=== PATIENT | male | born 1990 | race African-American/Black ===

== ENCOUNTER 2017-06-24 15:00 | Inpatient (IN) | payer OTHER, MEDICARE ==
[~2017-06-24] VITALS: Ht 188 cm; Wt 81.6 kg
[~2017-06-24 15:00] MED LIST: A/B OTIC 54 MG/15 ML OTIC; RISPERDAL1 M1 PO
--- NOTE | 2017-06-24 15:51 | ED PSYCHIATRIC COMPLAINT ---
See Addendum History of Present Illness General Chief Complaint: Psychiatric Related Complaint Stated Complaint: NON COMPLIANT WITH PSY MEDS Source: patient, old records, peer Exam Limitations: clinical condition Vital Signs & Intake/Output Vital Signs & Intake/Output Vital Signs Date Time Temp Pulse Resp B/P B/P Pulse O2 O2 Flow FiO2 Mean Ox Delivery Rate 06/25 0617 97.0 66 18 128/70 100 Room Air 06/25 0445 98.2 75 16 136/71 100 Room Air 06/25 0238 60 16 100 Room Air 06/24 2331 98.1 77 16 121/73 98 Room Air 06/24 1631 Room Air 06/24 1524 97.8 74 18 140/67 99 Room Air ED Intake and Output 06/25 0000 06/24 1200 Intake Total Output Total Balance Patient 180 lb Weight Reconcile Medications Antipyrine/Benzocaine (A/B Otic 54 MG/Ml-14 MG/Ml 15 Ml) 15 ML FELIX 4 GTT OTIC TID CERUMEN IMPACTION Risperidone (Risperdal) 1 MG TABLET 1 TAB PO QPM scizoeffective Triage Note: PT BIBA ON PEER FOR AGGRESSIVE BEHAVIORS AND NON COM WITH MEDS. PT FAMILY CALLED AND STATED HE NEEDED TO BE EVAL.. POLICE ARRIVED AND PT WAS NOT MAKING SOUND STATEMENTS. Triage Nurses Notes Reviewed? yes Onset: Abrupt Duration: day(s): (2-3) Timing: single episode today Severity: moderate, severe Associated Symptoms: anxiety, impaired concentration HPI: 26-year-old male past medical history of schizophrenia presents for evaluation on a police paper. Patient's family had called the police stating that patient needed to the hospital in the psych evaluation. Patient has not been taking his medications for 2 or 3 days. He supposed be taking Depakote and risperidone. He states that he has been hearing voices. He denies feeling suicidal ideation but does report depression and anxiety. History is limited because patient is currently psychotic. He denies any drug or alcohol use. No chest pain or any other associated symptoms. (Kamari Wu) Allergies Coded Allergies: No Known Allergies (06/24/17) (Charo XAVIER,Gerard) Past History Medical History Any Pertinent Medical History? see below for history Psychiatric: bipolar disease, psychosis, schizophrenia Surgical History Surgical History: N Psychosocial History Who do you live with Patient/Self What is your primary language Burmese Family History Hx Contributory? No (Kamari Wu) Review of Systems Review of Systems Constitutional: Reports: no symptoms. EENTM: Reports: no symptoms. Respiratory: Reports: no symptoms. Cardiovascular: Reports: no symptoms. GI: Reports: no symptoms. Genitourinary: Reports: no symptoms. Musculoskeletal: Reports: no symptoms. Skin: Reports: no symptoms. Neurological/Psychological: Reports: see HPI, anxiety, emotional problems, other (psychotic ). Hematologic/Endocrine: Reports: no symptoms. Immunologic/Allergic: Reports: no symptoms. All Other Systems: Reviewed and Negative (Kamari Wu) Physical Exam Physical Exam General Appearance: well developed/nourished, no apparent distress, alert, awake Head: atraumatic, normal appearance Eyes: Bilateral: normal appearance, PERRL, EOMI. Ears, Nose, Throat: normal pharynx, normal ENT inspection, hearing grossly normal Neck: normal inspection, supple, full range of motion Respiratory: normal breath sounds, chest non-tender, no respiratory distress, lungs clear Cardiovascular: regular rate/rhythm, normal peripheral pulses Gastrointestinal: soft, non-tender Extremities: normal range of motion Neurological/Psychiatric: no motor/sensory deficits, awake, agitated, alert, anxious Appearance/Memory/Insight: disheveled, impaired insight Behavoir/Eye Contact/Speech: avoids eye contact, uncooperative, increased rate of speech, refused to answer Thoughts/Hallucinations: delusions, flight of ideas, grandiose, incoherent Skin: intact, normal color SAD PERSONS Done? patient not suicidal (Kamari Wu) Progress Differential Diagnosis: dementia, drug intoxication, drug overdose, drug withdrawal, electrolyte abnormality, medication noncompliance Plan of Care: Orders Procedure Date/time Status Regular Diet 06/25 B Active Continuous Observation Monitor 06/25 0700 Active Continuous Observation Monitor 06/25 0300 Active Regular Diet 06/24 D Complete Continuous Observation Monitor 06/24 2300 Active Continuous Observation Monitor 06/24 1900 Active Add-on Test (ER Only) 06/24 1806 Active DEPAKOTE LEVEL 06/24 1700 Complete Continuous Observation Monitor 06/24 1507 Active URINE DRUG SCREEN FOR ER ONLY 06/24 1507 Complete URINALYSIS 06/24 1507 Complete ETHANOL 06/24 1507 Complete COMPREHENSIVE METABOLIC PANEL 06/24 1507 Complete CBC WITHOUT DIFFERENTIAL 06/24 1507 Complete ED CRISIS PSYCH CONSULT 06/24 1507 Active Current Medications Sig/Rose Start time Last Medication Dose Stop Time Status Admin Divalproex Sodium 500 MG BID 06/25 1030 UNVr 06/25 (Depakote) 1045 Risperidone 2 MG BID 06/25 1030 UNVr 06/25 (Risperidone) 1045 Laboratory Tests 06/24/17 1700: Anion Gap 13, Estimated GFR > 60, BUN/Creatinine Ratio 14.0, Glucose 95, Calcium 9.8, Total Bilirubin 0.6, AST 26, ALT 27, Alkaline Phosphatase 66, Total Protein 7.5, Albumin 4.3, Globulin 3.2, Albumin/Globulin Ratio 1.3, CBC w Diff NO MAN DIFF REQ, RBC 4.74, MCV 94.9 H, MCH 30.3, MCHC 32.0 L, RDW 15.0 H, MPV 9.8, Gran % 46.8, Lymphocytes % 38.3, Monocytes % 11.2 H, Eosinophils % 2.9, Basophils % 0.8, Absolute Granulocytes 1.8, Absolute Lymphocytes 1.5, Absolute Monocytes 0.4, Absolute Eosinophils 0.1, Absolute Basophils 0, Valproic Acid < 10.0 L, Serum Alcohol < 10.0 06/24/17 1537: Urine Opiates Screen < 100, Methadone Screen < 40, Barbiturate Screen < 60, Ur Phencyclidine Scrn < 6.00, Amphetamines Screen < 100, U Benzodiazepines Scrn < 85, Urine Cocaine Screen < 50, Urine Cannabis Screen < 5.00, Urine Color YEL, Urine Clarity CLEAR, Urine pH 6.5, Ur Specific [place] 1.015, Urine Protein NEG, Urine Ketones NEG, Urine Nitrite NEG, Urine Bilirubin NEG, Urine Urobilinogen 0.2, Ur Leukocyte Esterase NEG, Ur Microscopic EXAM NOT REQUIRED, Urine Hemoglobin NEG, Urine Glucose NEG History is limited as patient is currently very psychotic. He is not answering most questions. He denies being suicidal or homicidal. He is not taking his medications. Spoke with crisis they recommend risperidone and Depakote these were ordered. Basic labs ordered and are within normal limits. Patient be kept in the ER for crisis eval. He is on a police paper. Patient sent to Dr. Mancilla pending crisis. Hand-Off Endorsed To: Gerard Mancilla MD Endorsed Time: 2137 Pending: consult (crisis) (Kamari Wu) Hand-Off Endorsed To: Chuck Mohamud DO Endorsed Time: 0700 Pending: other (Re-eval) (Gerard Mancilla MD) Departure Departure Disposition: STILL A PATIENT Condition: Stable Clinical Impression Primary Impression: Schizophrenia Qualifiers: Schizophrenia type: unspecified Qualified Code: F20.9 - Schizophrenia, unspecified Referrals: Suellen Nur (PCP/Family) Departure Forms: Customer Survey General Discharge Information (Kamari Wu) PA/MOLD INSPECTOR Co-Sign Statement Statement: ED Attending supervision documentation- x I saw and evaluated the patient. I have also reviewed all the pertinent lab results and diagnostic results. I agree with the findings and the plan of care as documented in the PA's/MOLD INSPECTOR's documentation. [] I have reviewed the ED Record and agree with the PA's/MOLD INSPECTOR's documentation. [] Additions or exceptions (if any) to the PAs/MOLD INSPECTOR's note and plan are summarized below: [] (Gerard Mancilla MD) Departure Comments 06/25/17 The patient was signed out to me by Dr. Mancilla at 7 AM. He is pending disposition by Crisis. (Chuck Mohamud DO) ED Attending Observation Initial Observation Note: I have seen and personally examined MALGORZATA BYERS on 06/24/17 at 8. I agree with the current emergency department documentation. The disposition (admission or discharge) is uncertain at this time, he needs a period of observation for the following reason(s): The ED Nurse caring for this patient has been personally informed as to what the patient is being observed for. (Kamari Wu)
[2017-06-24 17:42] LABS: ABSOLUTE BASOPHIL COUNT 0 /CUMM (0.0-0.2); ABSOLUTE EOSINOPHIL COUNT 0.1 /CUMM (0.0-0.7); EOSINOPHIL % 2.9 % (0-5)
[2017-06-24 17:43] LABS: ABSOLUTE GRANULOCYTE CT 1.8 /CUMM (1.4-6.5); ABSOLUTE LYMPH COUNT 1.5 /CUMM (1.2-3.4); ABSOLUTE MONOCYTE COUNT 0.4 /CUMM (0.10-0.60); BASOPHIL % 0.8 % (0.0-2.0); GRANULOCYTE % 46.8 % (42.2-75.2); MEAN CORPUSCULAR HGB 30.3 PG (27.0-31.0); MEAN CORPUSCULAR VOLUME 94.9 FL (80.0-94.0); MEAN PLATELET VOLUME 9.8 FL (7.4-10.4); PLATELET COUNT 257 /CUMM (130-400); RED BLOOD CELL CT 4.74 /CUMM (4.70-6.10); WHITE BLOOD CELL COUNT 3.8 /CUMM (4.8-10.8)
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
[2017-06-27 12:10] VITALS: BP 148/65
--- NOTE | 2017-06-27 14:12 | CPS PROVIDER INIT ASMT PSYCH ---
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 The day prior to admission he presented at his brother's house in a state of agitation and floridly psychotic Circumstances Leading to Admission: psychotic, non compliant with treatment, using drugs and alcohol, being belligerent and gravely disabled Problem(s) Justifying Need for Admission: -acute psychosis -history of suicidal ideation-currently pssivley suicidal(no plan/intent) Past Psychiatric History Past Diagnosis(es)- if any: Schizophrenia, bipolar disorder,personality disorder Past Precipitating Factors- if any: -noncomliant with medication - Include inpatient and outpatient treatment Treatment History: -multiple inpatient treatments -multiple oupatien treatments -noncompliance with after care History of Suicide Attempts or Gestures denies Substance Abuse History: cannabis Allergies: Coded Allergies: No Known Allergies (06/24/17) Home Med List: none - Include any medical condition(s) that may - impact the patient's recovery/remission Past Medical History: non contributory Past History Medical History Blood Transfusion Hx: No Neurological: NONE EENT: NONE Cardiovascular: NONE Respiratory: NONE Gastrointestinal: NONE Hepatic: NONE Renal: NONE Musculoskeletal: NONE Psychiatric: bipolar disease, psychosis, schizophrenia Endocrine: NONE Blood Disorders: NONE Cancer(s): NONE 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: 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 History of MRSA: No History of VRE: No History of CDIFF: No Isolation History: Standard Surgical History Surgical History: PT HAS MULTIPLE SX R/T KEEN A CHILD Psychiatric Family/Social Hx Family History Psychiatric Illness: unknown Substance Use: cannabis Suicides: unknown Other Family History: non contributory Social History Living Situation: lives alone in apprtment in [place], [place] Significant Relationships (family/friends): -good relationship with family, does not have friends Education: HS graduate Vocation/Occupation: disabled Legal: denies Other Social History: non contributory Healthly Behaviors Screening Tobacco Screening Tobacco Use from ED Docu: Refused to answer - If tobacco counseling indicated - the following topics are required. - #1 Recognizing dangerous situations. - #2 Coping Skills. - #3 Basic information about quitting. Status of Tobacco Cessation Counseling: Not Applicable Cessation Med Status Not Applicable Alcohol Screening - ETOH screen POS if BAL >=80 or Audit-C>= M4/F3 Audit-C Score from Diag Assess: 0 Alcohol Use Screening Results: Neg per Audit C &/or BAL - If ETOH counseling indicated - the following topics are required. - #1 Express concern about the patient's - drinking at unhealthy levels, include informing - of national norms for moderate drinking: - men <= 14 drinks/week, max 4 drinks/occasion - women <= 7 drinks/week, max 3 drinks/occasion - #2 Providing feedback, including linking alcohol to - negative physical effects (liver injury, hypertension) - negative emotional effects (relationship problems and - depression) - negative occupational consequences (reduced work - performance) - #3 Advising the patient to abstain from alcohol or - to drink below national norms for moderate drinking - (as listed above). Status of ETOH Use Counseling: N/A B/C NO ETOH Use Metabolic Screening - Screen if on a Neuroleptic Medication - Metabolic screening should include: - Blood Pressure, BMI, Glucose or Hgb A1c, & a - Lipid profile from within the past 365 days. Metabolic Screening () Not Applicable, patient not on a neuroleptic. OR () Patient on a neuroleptic(s) . Enter below results for Hemoglobin A1C, and lipid panel if obtained during the last 365 days. BMI: 23.100 Blood Pressure: 146/78 Laboratory Results From [facility] (If applicable): Exam and Plan Mental Status Examination Ambulation Status: AD Appearance: dishevelled Attitude towards examiner: cooperative Psychomotor activity: agitated Behavior: erratic Quality of speech: poverty of speech and thought Affect: blunted, constricted, frustrated Mood: irritable Suicidal Ideation: denies Homicidal Ideation: denies Hallucinations: denies but seems to respod to internal stimuli Paranoid/Delusional Material: present-people are talking about him, conspiring to get him in trouble Difficulties with thought organization: poverty of thought. thought blocking Insight: poor insight Judgment: poor judgement Orientation: x3 Cognition: intact Memory Function: intact Estimate of intellectual functioning: average Assets/Strengths Patient Identified Assets/Strengths: -smart, compassionate Impression/Plan Impression and Plan: 26 yo with shizoaffective disorder and exacerbation of symptoms in the context of medication non-compliance Inpatient stabilization - Include all active medical diagnosis that require tx DSM 5 Diagnosis(es): schizoaffective disorder, bipolar type, acute exacerbation - Initial Tx Plan for Active Psych & Medical Conditions Treatment Plan: -resume medication -resume depo-medication -participation in therapeutic milieu -appropriate aftercare - Factors that would help patient function - in a less restrictive setting. Factors: -absence of psychosis -medication compliance -appropriate aftercare
--- NOTE | 2017-06-27 17:21 | History & Physical ---
General Information and HPI MD Statement: I have seen and personally examined MALGORZATA BYERS and documented this H&P. The patient is a 26 year old M who presented with a patient stated chief complaint of disorganized behavior and agitation. Source of Information: patient Exam Limitations: no limitations History of Present Illness: 26-year-old male with past psychiatric history significant for schizophrenia and screws affective disorder who is admitted to Inpatient Psychiatry with disorganized behavior and agitation. Apparently patient was not taking his medications. He went to his brother's house who called 911. Patient was recently admitted which were hospital also. He has not been compliant with his medications and he does not follow with outpatient appointments. Patient denies any medical issues, he denies any aches or pains, no chest pain, no shortness of breath, no nausea vomiting or diarrhea. Denies any urinary complaints. 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 Psychosocial History Where do you live? Home ETOH Use: 6 Illicit Drug Use: UTD Review of Systems Review of Systems Constitutional: Reports: see HPI. EENTM: Reports: see HPI. Cardiovascular: Reports: see HPI. Respiratory: Reports: see HPI. GI: Reports: see HPI. Musculoskeletal: Reports: see HPI. Neurological/Psychological: Reports: see HPI. Exam & Diagnostic Data Last 24 Hrs of Vital Signs/I&O Vital Signs Date Time Temp Pulse Resp B/P B/P Pulse O2 O2 Flow FiO2 Mean Ox Delivery Rate 06/27 1210 97.0 83 148/65 06/27 1141 92 15 145/88 100 Room Air Room Air 06/27 0834 97.5 84 20 131/71 99 Room Air 06/27 0622 98.2 65 16 125/56 99 Room Air 06/27 0420 97.7 72 20 128/60 97 Room Air 06/27 0018 97.5 66 16 148/69 100 Room Air 06/26 1910 98.1 92 18 136/63 99 Room Air Intake & Output 06/27 1600 06/27 0800 06/27 0000 Intake Total Output Total Balance Patient 180 lb Weight Physical Exam General Appearance Alert, Oriented X3, Cooperative, No Acute Distress Skin scar vinay on the face and neck HEENT PERRLA Neck Supple Cardiovascular Regular Rate, Normal S1, Normal S2, No Murmurs Lungs Clear to Auscultation Abdomen Normal Bowel Sounds, Soft, No Tenderness Neurological Cranial Nerves II through XII: intact Extremities No Edema Last 24 Hrs of Labs/Polo: Labs from 06/24 reviewed. Assessment/Plan Assessment: 26-year-old male with past history significant for schizophrenia and schizoaffective disorder who was admitted to Inpatient Psychiatry with disorganized behavior and agitation. I have reviewed patient's blood work from 06/24/2017. He does have slight leukopenia. His BEP is normal. He does have low valproic acid level likely secondary to medication noncompliance. I will defer his psych management up to psychiatrist. As Ranked By This Provider Problem List: 1. Schizophrenia Qualifiers Schizophrenia type: unspecified Qualified Code: F20.9 - Schizophrenia, unspecified 2. Schizoaffective disorder Miscellaneous Miscellaneous Documentation Attending Case Discussed With: Madeleine Chatman M.D. Primary Care Physician: Suellen Nur Patient sees these Specialists psychiatrist Level of Patient Care: Isael
[2017-06-27 19:45] VITALS: BP 148/79
[2017-06-28 08:19] VITALS: BP 132/57
[2017-06-28 12:12] VITALS: BP 148/86
--- NOTE | 2017-06-28 15:36 | SOCIAL WORKER PROG NOTE PSYCH ---
Social Work Progress Note Progress Note Attempted to meet with pt to complete his psychosocial history, but he was sedated due to agitation.
[2017-06-28 15:38] VITALS: BP 115/71
[2017-06-28 19:53] VITALS: BP 146/78
--- NOTE | 2017-06-28 20:38 | CP SOUTH PROGRESS NOTE PSYCH ---
Psych (Inpt) Progress Note Progress Note The patient was discussed with the unit staff. We reviewed the inpatient and crisis medical records. We interviewed the patient 1:1 He has been calmer, cooperative with the interview, still inappropriate, unable to respect boundaries, needed to be redirected multiple times by staff members when he was bothering other patients. Being intrusive. He is noticed to talk to himself and laughing inappropriately at times. He is also making inappropriate comments relative to her peers and staff members. He is cooperative with taking medications and seems to be tolerating it well. The patient denies suicidal/homicidal ideation, auditory/visual hallucinations or side effects from medication. He received an injection of Risperdal Consta 25 mg to be repeated every 2 weeks. We will continue the oral risperidone at this time. A/P Schizophrenia-started to respond to medication intervention. We will continue present medication regimen, observation, symptom monitoring. The patient will be followed up daily by the unit psychiatrist.
--- NOTE | 2017-06-29 11:02 | CP SOUTH PROGRESS NOTE PSYCH ---
Psych (Inpt) Progress Note Progress Note Vital Signs Date Time Temp Pulse Resp B/P B/P Pulse O2 O2 Flow FiO2 Mean Ox Delivery Rate 06/28 1952 97.4 72 146/78 06/28 1538 86 115/71 06/28 1212 94 148/86 slightly irritable, marginally cooperative with the interview Dr. Waldrop's notes for the weekend indicated the following: "still inappropriate, unable to respect boundaries, needed to be redirected multiple times by staff members when he was bothering other patients., intrusive." Today, he seemed witjhdrawn/disinterested he was not talking to himself or laughing inappropriately during interview. He is cooperative with taking medications and seems to be tolerating it well. The patient denies suicidal/homicidal ideation, denied auditory/visual hallucinations or side effects from medication. A/P Schizophrenia-started to respond to medication intervention. We will continue present medication regimen, observation, symptom monitoring. The patient will be followed up daily by psychiatrist.
[2017-06-29 12:05] VITALS: BP 143/76
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
--- NOTE | 2017-06-29 16:13 | SOCIAL WORKER PROG NOTE PSYCH ---
Social Work Progress Note Progress Note Introduced myself to James and attempted to complete his social hx. He was cooperative initially, but wasn't really able to give alot of detailed information. He asked me several times why this information was being taken as no one has done it before. I explained the purpose several times. He seemed to be struggling with answers and appeared guarded. He then stated that he wasn't able to do this today. I told him that was ok and we will try again tomorrow. He then left the office.
[2017-06-29 16:20] VITALS: BP 149/78
[2017-06-29 19:38] VITALS: BP 149/78
[2017-06-30 08:45] VITALS: BP 163/76
--- NOTE | 2017-06-30 08:50 | CP SOUTH PROGRESS NOTE PSYCH ---
Psych (Inpt) Progress Note Progress Note The patient's progress and treatment plan were reviewed and the treatment team meeting this morning. The team included: Nursing staff, social work staff, group therapy, activity therapy/milieu therapy staff, and psychiatrist. Vital signs: Blood pressure was 145/78 mmHg, pulse was 83 bpm, and temperature was 97.3F Mental status examination: The patient spent most of the morning in his room. He finally got up around 12: 30 or 13:00 James was less irritable today, he was marginally cooperative with the interview, remains withdrawn/disinterested He denies hallucinations and did not seem to be responding to internal stimuli. The interview was not long as he was very disinterested and therefore I could not tell how thought disordered he was. He is cooperative with taking medications and seems to be tolerating it well. The patient denies suicidal/homicidal ideation, Denied side effects from medication. Assessment: James is a 26-year-old single black male who was admitted to the inpatient psychiatric unit at [facility] on 06/27/2017 on a physician emergency certificate Schizophrenia-started to respond to medication intervention. We will continue present medication regimen, observation, symptom monitoring. The patient will be followed up daily by psychiatrist. Current Medications Divalproex Sodium 500 MG BID 06/25 1030 AC 06/30 Haloperidol 5 MG Q2 HRS NEEDED PRN 06/27 1400 AC 06/29 Lorazepam 2 MG AT BEDTIME NEED.. 06/29 1200 AC Lorazepam 1 MG Q4 HRS NEEDED PRN 06/29 1200 AC 06/29 Lorazepam 2 MG Q2 HRS NEEDED PRN 06/29 1200 AC Risperidone 25 MG Q 2 WEEKS 06/27 1415 AC 06/27 Risperidone 2 MG BID 06/25 1030 AC 06/30
[2017-06-30 12:02] VITALS: BP 145/78
--- NOTE | 2017-06-30 15:41 | SOCIAL WORKER PROG NOTE PSYCH ---
Social Work Progress Note Progress Note Met with James to discuss issues related to his eviction. James couldn't tell me much other than he thought he was supposed to be in court yesterday or today. I ended calling [address] with him to see what was going on ). I was informed that a court hearing hadn't been scheduled and he has to file paperwork for an appearance. They gave me the rosita number ( [id number]). James seems very disorganized and confused about what his is supposed to be doing. He doesn't think he has any paperwork at home and said someone stole his eviction notice. I asked if he had anyone to help him with any of this? He said no. I asked if his Brother Patrick was a support to him? He said no and that he tries to just stay away from him and not speak with him. I asked if he had received services at [facility]? He said he has for short periods of time. I asked if he would like to be re-referred? He said ok. He signed a release. He mentioned that he goes to school and wants someone to take hikes with. I asked what he would like to go to school for? He laughed and didn't know what I meant. Seems to continue to be disorganized and tangential. Got guarded when I asked if he was feeling isolated and lonely? He said he doesn't like to answer those kind of questions and didn't want to talk anymore.
[2017-06-30 16:02] VITALS: BP 143/71
[2017-06-30 20:03] VITALS: BP 125/67
--- NOTE | 2017-07-01 07:57 | CP SOUTH PROGRESS NOTE PSYCH ---
Psych (Inpt) Progress Note Progress Note The patient's progress and treatment plan were reviewed in the treatment team meeting this morning. The team included: RN, social work staff, group therapy, activity therapy/milieu therapy staff, and psychiatrist. Vital signs: Blood pressure was 115/80 mmHg, pulse was 83 bpm, and temperature was 97.4 F Mental Status Examination: The patient was awake but sleepy/tired. He was pleasant. He cooperative with the interview althought he remains somewhat disinterested. He denied hallucinations and did not seem to be responding to internal stimuli. The patient seemed to have difficulties with attention, concentration, information processing and organization of thoughts. the patient denies suicidal/homicidal ideation, taking medications and seems to be tolerating them well/denied side effects from medication. Assessment: James is a 26-year-old single black male who was admitted to the inpatient psychiatric unit at [facility] on 06/27/2017 on a physician emergency certificate, Schizophrenia-started to respond to medication intervention. Treatment Plan Update: We will continue Risperidone 25 MG IM Q 2 WEEKS Risperidone 2 MG BID Divalproex Sodium 500 MG BID Lorazepam 2 MG AT BEDTIME NEED.. Lorazepam 1 MG Q4 HRS NEEDED PRN Lorazepam 2 MG Q2 HRS NEEDED PRN Lorazepam 1 MG Q4 HRS NEEDED PRN 06/29 1200 AC 06/29 Lorazepam 2 MG Q2 HRS NEEDED PRN 06/29 1200 AC Risperidone 25 MG Q 2 WEEKS 06/27 1415 AC 06/27 Risperidone 2 MG BID 06/25 1030 AC 06/30 DICTATED BY: Td Doherty MD DATE/TIME DICTATED:06/30/1749
[2017-07-01 08:41] VITALS: BP 146/84
--- NOTE | 2017-07-01 11:17 | SOCIAL WORKER PROG NOTE PSYCH ---
Social Work Progress Note Progress Note TC - [facility] - Spoke Rajani in Admissions - she suggested leaving a VM with [facility] Outpatient . Left a voicemail regarding process to connect a [place] patient currently inpatient at to [facility]. Spoke with Rajani/Admissions [facility] again stated no name or contact on VM. She did state at [facility] there is a Walk-in at [facility] - triage for services. She suggested I call [facility] - , for more information. Left a voicemail for Feilcia/ACT Team [facility] - asked her to call Danelle Dickey LCSW back [facility] regarding patient and most expedited way to connect him to [facility] outpatient - prescriber and therapy.
[2017-07-01 12:05] VITALS: BP 115/80
--- NOTE | 2017-07-01 15:37 | SOCIAL WORKER PROG NOTE PSYCH ---
See Addendum Social Work Progress Note Progress Note James was looking to speak with me. He has a small piece of paper in his had that said "need to speak about medical marijuana." He asked about how to get on medical marijuana. I told him that was not something we do here at the hospital and he would need to speak to someone in the community about that. I asked if he was using marijuana regularly? I believe tox screen was negtive. He said "no I don't need it." The more questions I ask the more agitated/ frustrated he gets and stated to me "you can't ask so many questions like that to an angry person." I had been trying to ask more questions about his current eviction. He reports paying his rent. I asked if had been disturbing the peace or anything like that? He wouldn't answer personal questions. He stated he would rather just leave the apartment he has been in and find a new place. He was guarded about answering what his income is. Asked how his day was going? He stated it was better than yesterday. Reported sleeping okay. Reports no other symptoms at this time. Was focused on the smoking cessation group info posted on the wall. He asked about it. I shared what the purpose of it was. He talked about wanting to stop smoking, but then seemed disorganized in his thinking as it sounded like he still wanted to smoke. Remains guarded and disorganized.
[2017-07-01 16:00] VITALS: BP 136/64
[2017-07-01 19:43] VITALS: BP 116/77
[2017-07-02 07:54] VITALS: BP 151/67
[2017-07-02 12:10] VITALS: BP 141/76
--- NOTE | 2017-07-02 13:05 | CP SOUTH PROGRESS NOTE PSYCH ---
Psych (Inpt) Progress Note Progress Note The patient's progress and treatment plan were reviewed in the treatment team meeting this morning. The team included: RN, PRINCIPAL ANDROID DEVELOPER, group therapy, activity therapy/milieu therapy and art therpay staff, and psychiatrist. Vital signs: BP: 141/76 mmHg, pulse was 91 bpm, and temperature was 97.9 F Mental Status Examination: The patient was alert and oriented to time, place, and person. He was pleasant and cooperative--up to a point. At one point became paranoid and asked why I was asking about his housing options/eviction notice, etc. He denied hallucinations and did not seem to be responding to internal stimuli except on one short occasion. James has difficulties with attention, concentration, and information processing. This seems to be a combination of executive defiicts as well as a thought process disruption. James denied suicidal/homicidal ideation, tolerating them well/denied side effects from medication. He denied that he was on injectable Risperidone, he said he was taking pills, he said he does not plan to take any more injections Assessment: James is a 26-year-old single Black male who was admitted to the inpatient psychiatric unit at [facility] on 06/27/2017 on a PEC due to what seemes an acute exacerbation of schizophrenia. He is showing improvement, slow but consistent. Treatment Plan Update: D/C Risperdal Consta (he insisted he was not on Consta and does not plan to continue on Consta) Continue Risperidone 2 MG BID Continue Divalproex Sodium 500 MG BID Lorazepam 2 MG AT BEDTIME NEEDed for insonia.
--- NOTE | 2017-07-02 14:27 | SOCIAL WORKER PROG NOTE PSYCH ---
Social Work Progress Note Progress Note Called the [facility] Diagnostic and evaluation unit about his referral. I was told that Dr. Manzo reviews all of the referrals and she is out until Thursday. She said to send a clinical packet to . I told them this is a patient that had been seen by them and is looking to renew services again. The staff member stated he was a client there from 2013-Apr 2016. Faxed clinical. Let James know I was working on his referral. He met with Lexis (PLUMBING AND HEATING CONTRACTOR student) to finish his psychosocial today. Seems a bit brighter.
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
[2017-07-02 16:08] VITALS: BP 142/73
[2017-07-02 19:41] VITALS: BP 146/75
--- NOTE | 2017-07-03 10:42 | SOCIAL WORKER PROG NOTE PSYCH ---
Social Work Progress Note Progress Note James was in bed sleeping this morning. Wasn't at group. Encouraged him to get up and go to group. Was in bed again later in the afternoon. Offers no issues, other than wondering when he is going home. I told him sometime next week hopefully. Wished him Happy Easter. He wished me the same.
[2017-07-03 12:10] VITALS: BP 99/45
--- NOTE | 2017-07-03 13:38 | CP SOUTH PROGRESS NOTE PSYCH ---
Psych (Inpt) Progress Note Progress Note The patient's progress and treatment plan were reviewed in the treatment team meeting this morning. The team included: RN, BACKREST ASSEMBLER, group therapy, activity therapy/milieu therapy, and psychiatrist. Mental Status Examination: The patient was alert and oriented to time, place, and person. He was pleasant and cooperative (up to a point). He denied hallucinations and did not seem to be responding to internal stimuli except on one short occasion. James has difficulties with attention, concentration, and information processing. This seems to be a combination of executive dysfunction as well as a thought process disruption. James denied wishing and denied suicidal/homicidal ideation, denied side effects from medication. He denied that he was on injectable Risperidone, he said he was taking pills, he said he does not plan to take any more injections Assessment: James is a 26-year-old single Black male who was admitted to the inpatient psychiatric unit at [facility] on 06/27/2017 on a PEC due to what seemes an acute exacerbation of schizophrenia. He is showing slow but consistent improvement. Treatment Plan Update: Increase risperidone to 2 MG every morning and 3 mg at bedtime Continue Divalproex Sodium 500 MG BID Lorazepam 2 MG AT BEDTIME NEEDed for insonia.
[2017-07-03 16:15] VITALS: BP 145/74
[2017-07-03 19:49] VITALS: BP 140/72
--- NOTE | 2017-07-04 10:53 | CP SOUTH PROGRESS NOTE PSYCH ---
Psych (Inpt) Progress Note Progress Note Include the following elements, when applicable: Involvement in the active treatment of the patient with behavioral observations of the patient and the patient's response to the treatment. Review of the ongoing treatment process in the context of the treatment plan. Indication of how multi-disciplinary staff members are carrying out the treatment plan. Plans for future interventions and recommendations for revision of the treatment plan. Liaison with other physicians/providers. Progress Note: At first pt did not want to come out from underneath covers but did respond to questions. Eventually, he poked the top of this head out and made limited eye contact. Pt notes that he is "fine." Was not interested in groups today "I went yesterday." He notes that he is tired and wanted to go back to sleep though pt was not sleeping before. Pt notes no social supports. Very long pause when asked about psychotic sx but never actually answered. Denies SI or HI. Current Medications Sig/Rose Start time Last Medication Dose Route Stop Time Status Admin Diphenhydramine HCl 25 MG Q2 HRS NEEDED PRN 06/27 1400 DC 07/02 PO 2153 Divalproex Sodium 500 MG BID 06/25 1030 AC 07/04 PO 1019 Haloperidol 5 MG Q2 HRS NEEDED PRN 06/27 1400 AC 07/03 PO 2108 Lorazepam 1 MG Q6P PRN 07/03 1345 AC PO Lorazepam 2 MG AT BEDTIME NEED.. 06/29 1200 AC 07/03 PO 2108 Lorazepam 1 MG Q4 HRS NEEDED PRN 06/29 1200 DC 06/30 PO 2141 Lorazepam 2 MG Q2 HRS NEEDED PRN 06/29 1200 AC PO Risperidone 2 MG 0807/04 0800 AC 07/04 PO 1019 Risperidone 3 MG 07/03 AC 07/03 PO 2007 Risperidone 25 MG Q 2 WEEKS 06/27 1415 DC 06/27 IM 1820 Risperidone 2 MG BID 06/25 1030 DC 07/03 PO 1233 Vital Signs Date Time Temp Pulse Resp B/P B/P Pulse O2 O2 Flow FiO2 Mean Ox Delivery Rate 07/03 1948 97.5 85 140/72 07/03 1615 90 145/74 07/03 1210 92 99/45 MSE General appearance: good hygiene and grooming; Attitude: cooperative but bizzare; Eye contact: appropriate; Movement: no psychomotor agitation or slowing; Speech: nl fluency, nl rate/rhythm, nl volume, nl prosody; Mood: "fine" Affect: odd, irritable, flat, appropriate, constricted, non-labile, congruent; Thought process: linear slightly less irritableand goal-directed; Thought content: denied SI or HI, ++ paranoid ideation around interaction; Perception: refused to state if + hallucinations- auditory, visual, does not appear to be responding to internal stimuli; I/J: limited A/P: Pt with schizophrenia with hx of treatment and medication non-compliance with continued psychotic sx. -Continue current medication regimen -Encourage integration into the milieu
[2017-07-04 12:37] VITALS: BP 145/77
[2017-07-04 16:07] VITALS: BP 141/69
[2017-07-04 19:41] VITALS: BP 146/66
--- NOTE | 2017-07-05 11:52 | CP SOUTH PROGRESS NOTE PSYCH ---
Psych (Inpt) Progress Note Progress Note Include the following elements, when applicable: Involvement in the active treatment of the patient with behavioral observations of the patient and the patient's response to the treatment. Review of the ongoing treatment process in the context of the treatment plan. Indication of how multi-disciplinary staff members are carrying out the treatment plan. Plans for future interventions and recommendations for revision of the treatment plan. Liaison with other physicians/providers. Progress Note: Pt again friendly today and started to be somewhat inapp but was easily redirected. Overnight, he was given 5mg haldol for agitation and ativan at 2am for repeated agitation. Responded well. Pt notes that he is "feeling a little better today." He would have preferred to sleep the whole night. Denies SI or HI. Feels meds are helpful. Current Medications Sig/Rose Start time Last Medication Dose Route Stop Time Status Admin Divalproex Sodium 500 MG BID 06/25 1030 AC 07/04 PO 2215 Haloperidol 5 MG Q2 HRS NEEDED PRN 06/27 1400 AC 07/05 PO 0103 Lorazepam 1 MG Q6P PRN 07/03 1345 AC 07/05 PO 0103 Lorazepam 2 MG AT BEDTIME NEED.. 06/29 1200 AC 07/04 PO 2215 Lorazepam 2 MG Q2 HRS NEEDED PRN 06/29 1200 AC PO Risperidone 4 MG 07/05 2000 AC PO Risperidone 2 MG 0800 07/04 0800 AC 07/04 PO 1019 Risperidone 3 MG 07/03 2000 DC 07/04 PO 2006 Vital Signs Date Time Temp Pulse Resp B/P B/P Pulse O2 O2 Flow FiO2 Mean Ox Delivery Rate 07/04 1941 96.7 99 146/66 07/04 1607 96 141/69 07/04 1237 98.0 91 145/77 MSE General appearance: good hygiene and grooming; Attitude: cooperative but bizzare; Eye contact: appropriate; Movement: no psychomotor agitation or slowing; Speech: nl fluency, nl rate/rhythm, nl volume, nl prosody; Mood: "a little better" Affect: odd, irritable, flat, appropriate, constricted, non-labile, congruent; Thought process: linear slightly less irritableand goal-directed; Thought content: denied SI or HI, slightly less paranoid ideation around interaction; Perception: refused to state if + hallucinations- auditory, visual, does not appear to be responding to internal stimuli; I/J: limited A/P: Pt with schizophrenia with hx of treatment and medication non-compliance with continued psychotic sx. -Increased bedtime dose of risperidone to 4mg for total of 6mg given increased agitation at nighttime. -Encourage integration into the milieu
[2017-07-05 12:26] VITALS: BP 142/79
[2017-07-05 15:35] VITALS: BP 149/79
[2017-07-05 19:50] VITALS: BP 139/68
[2017-07-06 00:38] VITALS: BP 135/73
[2017-07-06 09:46] VITALS: BP 149/90
[2017-07-06 12:22] VITALS: BP 142/95
--- NOTE | 2017-07-06 13:22 | CP SOUTH PROGRESS NOTE PSYCH ---
Psych (Inpt) Progress Note Progress Note I reviewed the notes by Dr. Wick from the weekend The patient's progress and treatment plan were reviewed in the treatment team meeting this morning. The team included: RN, MAGAZINE REPAIRER, OTR/L, and psychiatrist. Mental Status Examination: The patient was alert and oriented to place and person (he asked what day of the week it was). He was back in bed after lunch, he denied feeling depressed. He denied hallucinations. he has difficulties with attention, concentration, and information processing. He denied suicidal/homicidal ideation, and denied side effects from medication. Assessment: James is a 26-year-old single Black male who was admitted to the inpatient psychiatric unit at [facility] on 06/27/2017 on a PEC due to what seemes an acute exacerbation of schizophrenia. He is showing slow but consistent improvement. Treatment Plan Update: Continue risperidone 2 mg every morning and 4 mg at bedtime Continue Divalproex Sodium 500 MG BID Reduce PRN Lorazepam to 1.5 mg at BEDTIME NEEDed for insonia.
--- NOTE | 2017-07-06 14:24 | SOCIAL WORKER PROG NOTE PSYCH ---
Social Work Progress Note Progress Note James has been in his bed most of the day. He asked if he could leave today if his Brother were to come pick him up? I told him he isn't leaving today and that we are planning for Thursday. I asked how he was feeling? He said "regular." Reminded him that I am trying to connect him to services through [facility]. Called the Diagnostic and Evaluation Dept. at [facility] [phone]. Spoke with Dr. Manzo. She said someone should call from administration to set up an intake tomorrow. She couldn't say how far they were booking out. Once he come in for intake they will assess what his needs are and if he meets criteria for ACT again.
[2017-07-06 15:44] VITALS: BP 144/81
[2017-07-06 19:53] VITALS: BP 125/69
--- NOTE | 2017-07-07 09:09 | CP SOUTH PROGRESS NOTE PSYCH ---
Psych (Inpt) Progress Note Progress Note The patient's progress and treatment plan were reviewed in the treatment team meeting this morning. The team included: RN, HALL MONITOR, OTR/L, and psychiatrist. Mental Status Examination: James was irritable this morning. He seem to be bothered by the questions I was asking him. At one point he reported that he would like to stay longer in the hospital. But he seems to be undecided about the. He was alert and oriented to place and person He had earplugs but denied that he was having hallucinations. "I just like earplugs" James denied feeling depressed. He seemed to have difficulties with attention, concentration, and information processing. He denied feeling hopeless or wishing , he denied thoughts of suicide, he denied thoughts of violence or homicide He denied side effects from medication. Assessment: James is a 26-year-old single Black male who was admitted to the inpatient psychiatric unit at [facility] on 06/27/2017 on a PEC due to what seemes an acute exacerbation of schizophrenia. He is showing slow but consistent improvement. James has been compliant with the medication and has been tolerating gradual increases in his risperidone he is now on a total of 6 mg (2 mg in the morning and 4 mg at bedtime), he is not showing any dystonia or parkinsonian tremors Treatment Plan Update: Continue risperidone 2 mg every morning and 4 mg at bedtime Continue Divalproex Sodium 500 MG BID Reduce PRN Lorazepam to 1mg at BEDTIME NEEDed for insonia.
--- NOTE | 2017-07-07 11:28 | SOCIAL WORKER PROG NOTE PSYCH ---
Social Work Progress Note Progress Note Left a message with Patrick his brother awaiting confirmation that he will be picking him up tomorrow. I met with James, he remained under his blanket but offered he will reach out to his brother today to make sure he is picking him up for discharge, to bring him back to his house.Pt has trouble with moring routine per nursing and as evidenced by our meeting this morning, he continued to lay in bed, and will usually be up in time for lunch.
[2017-07-07 12:11] VITALS: BP 138/60
--- NOTE | 2017-07-07 13:23 | SOCIAL WORKER PROG NOTE PSYCH ---
Social Work Progress Note Progress Note Pt's brother Patrick wants to come in for a family meeting 10:30a, he wants be a part of discharge planning. He offers a visting nurse used to come daily with medications po and a once a week injectible he states the pt "made sense and was doing good on his own", he also used to have a guardian to help manage his money and he feels his housing issues are related to the lack of having a current "guardian". Patrick wants to be a resource, and feels James needs a good discharge plan to prevent returning to the hospital. He is willing to pick him up, but did have a few questions and wants to have a meeting with James and his team. Pt plans to be here at 10:30am if you need to change call him at [phone].
[2017-07-07 15:44] VITALS: BP 142/71
[2017-07-07 19:58] VITALS: BP 143/74
[2017-07-08 08:37] VITALS: BP 141/80
--- NOTE | 2017-07-08 09:09 | CP SOUTH PROGRESS NOTE PSYCH ---
Psych (Inpt) Progress Note Progress Note The patient's progress and treatment plan were reviewed in the treatment team meeting this morning. The team included: RN, ASSESSMENT COUNSELOR, OTR/L, and psychiatrist. Mental Status Examination: I met with up with the patient this afternoon. He insisted that I called his brother from my office. He became very irate with his brother. We ended the phone conversation and then he became irate that he is not leaving today and was insisting that he wants to walk to buy some cigarettes and then walked to the train station and go to [place]. He was alert and oriented to place and person. Today he was not wearing earplugs. He denied hallucinations. He denied feeling depressed. He seemed to have difficulties with attention, concentration, and information processing. He denied feeling hopeless or wishing , he denied thoughts of suicide, he denied thoughts of violence or homicide. Assessment: James is a 26-year-old single Black male who was admitted to the inpatient psychiatric unit at [facility] on 06/27/2017 on a PEC due to what seemes an acute exacerbation of schizophrenia. He is showing slow but consistent improvement. James has been compliant with the medication and has been tolerating gradual increases in his risperidone he is now on a total of 6 mg (2 mg in the morning and 4 mg at bedtime), he is not showing any dystonia or parkinsonian tremors Treatment Plan Update: Continue risperidone 2 mg every morning and 4 mg at bedtime Continue Divalproex Sodium 500 MG BID Continue PRN Lorazepam to 1mg at BEDTIME NEEDed for insonia.
--- NOTE | 2017-07-08 11:58 | SOCIAL WORKER PROG NOTE PSYCH ---
Social Work Progress Note Progress Note James was in bed this morning. Approached him with Dr. Doherty to discuss his Brother Patrick coming in for a family meeting this morning. He agreed to have the meeting and agreed to sign a release. He asked about discharge for today? Told him that we would be discussing things at the meeting. Received a message this morning from Patrick Hitchcock canceling the meeting for 10:30a due to illness. He said he would like to schedule it for the same time tomorrow. Called him back ([phone]). He said he visited James last night and tried to discuss his housing situation. He said James just wants to find another apartment. He tried to tell James that can take awhile. James got agitated and walked away. He said he doesn't think that James is quiet ready for discharge. He is concerned that James is not going to follow up with medications or his intake appt. Informed him that I was ablet to get an intake at [facility] on 07/20. I asked if he was able to help James get there? He doesn't think that James will agree. He kept stating that James needs a guardian. I told him he should go to probate court and apply for conservatorship. He said he was conserved, but then it got discontinued. He kept insisting that he get services to help him. I explained that the intake at [facility] was important to get him connected to services. Informed James that his Brother couldn't come due to illness. He remained in bed and said he didn't believe me. I told him he could call his Brother if he wanted to check. He asked what he was sick with? I told him that I didn't ask as I thought that was personal information. He said he wasn't going to call his Brother because he didn't want to talk to him. I told him that the meeting is rescheduled for tomorrow morning. He seemed agitated. James is scheduled for intake at [facility] on 07/20 at 8:45am he will need to fill out paperwork. He is to go to [address] [place] [address] Guevara will be seeing him. He will only need 2 weeks of meds at d/c. Their Fax number to fax d/c clinical is [phone].
[2017-07-08 16:19] VITALS: BP 137/55
[2017-07-08 19:52] VITALS: BP 150/92
[2017-07-09 08:24] VITALS: BP 127/69
[2017-07-09] MEDS ORDERED: DIVALPROEX SOD500 M2 PO (08:38)
[2017-07-09] MEDS ORDERED: RISPERIDONE2 M1 PO (08:38)
[2017-07-09] MEDS ORDERED: ATIVAN1 M1 PO (08:39)
--- NOTE | 2017-07-09 08:43 | Patient Discharge Instructions ---
Psych Discharge Inst General Discharge Information Reason for Admission: exacerbation of schizophrenia Psy Discharge Primary Diag+ Schizophrenia, Paranoid T Summary Tests/Major Procedures Lab Valproic Acid < 10.0 ug/mL L 06/24/17 1700 Studies Pending at DC: None Patient Instructions Contact Information Your Psychiatrist on [facility] was Td Doherty MD * If you are experiencing an emergency related to this hospitalization, please call [phone] to contact the treating psychiatrist or the psychiatrist-on- call. * To Request a copy of your medical records, please contact the Medical Records Department at [phone]. * To request results of studies pending at the time of discharge, please call [phone]. * Continue your Medications until directed to stop by your Healthcare provider. General Medication Information Please continue to take your new medications and your continued home medications , unless otherwise indicated on your discharge medication list, or unless directed by your MD or ORCHID HAND to stop them. Special Instructions Diet Regular Activity Normal Other Inst/Recommendations please have blood tests done for Depakote and Risperidone - Tobacco Use Treatment Offered Post DC Medications Offered: Refused Tob Medication Tx Post DC Tobacco Treatment Plan: Refused Tobacco Tx Pgm - EtOH/Drug Use D/O Treatment Offered Post DC Medications Offered: NA-No EtOH/Drug Use D/O Post DC EtOH/SubAbuse TX Plan: NA-No EtOH/Drug Use D/O Metabolic Screening Patient on a neuroleptic(s) . Enter below results for Hemoglobin A1C, and lipid panel if obtained during the last 365 days. BMI: 23.100 Blood Pressure: 127/69 Laboratory Results From [facility] (If applicable): Patient refused to have blood work done on 2 separate occasions Advance Directives Does the Patient have Medical Advance Directives No/Refused further info Does Pt have Psychiatric Advance Directives? No/Refused further info Does Patient have a Designated Surrogate Decision Maker: No Information About Psychiatric Advance Directives Provided? Refused Discharge Plan Post Hospital Treatment Plan: [facility]
--- NOTE | 2017-07-09 10:36 | SOCIAL WORKER PROG NOTE PSYCH ---
Social Work Progress Note Progress Note It was discussed in team meeting this morning that the scheduled 10:30AM damily meeting with James and his brother Patrick, would not be held. James had expressed to Dr. Doherty and nursing staff that he would like to walk to the [place] train station and take the train from there to [place]. Partnership Development Manager confirmed with James that he would prefer this plan over having his brother come pick him up. James confirmed that he would prefer to walk and take the train. He stated that from the train station, that he would then walk to his apartment. Partnership Development Manager spoke with brother Patrick, and relayed the discharge plan. Partnership Development Manager discussed the eviction paperwork with Patrick. In addition to giving James the paperwork, caption writer mailed a copy to marika Nguyen' home address (confirmed the address with Patrick via phone). Patrick agreed to help James fill out the paperwork. Partnership Development Manager also spoke with Patrick about accompanying James to his [facility] intake appointment on 07/20 at 8:45am. Patrick stated that so long as James permits it, he will accompany him to that appointment/intake. Additionally, caption writer told Patrick that James's [employer] insurance would not cover a visiting nurse service. Train times and fares were looked up by this caption writer. James will take the 12: 17PM train from [place] which arrives in [place] at 12:46PM. The fare is $ 2.75. It was confirmed that James has enough money to cover this $2.75 fare and will use his funds to purchase a ticket. Additionally, Patient Health Summary was faxed to [facility] admissions . Faxed Referral(s) Referred To: [facility] Transition of Care Documents sent: Health Summary Faxed to: [facility] Admissions Fax #: [phone] Faxed by: Lexis Espinoza Date faxed: 07/09/17 Time Faxed: [phone] Comment: Patient health summary faxed to [facility]. Fax confirmation put in chart
--- NOTE | 2017-07-09 10:51 | DISCHARGE SUMMARY REPORT-PSYCH ---
Visit Information Visit Dates/Diagnosis' Admission Date: 06/27/17 Discharge Date: 07/09/17 Reason for Admission: exacerbation of schizophrenia Psy Discharge Primary Diag: Schizophrenia, Paranoid T Hospital Course Significant Lab Findings: Patient refused to have blood work on the couple of occasions to monitor his lipid profile and hemoglobin A1c Course Complications: Patient did not have any complications while he was on the inpatient psychiatric unit Consultations: The patient had a history and physical examination performed by the vice president network when he was on the inpatient psychiatric unit. Please refer to the patient's electronic health record for details on the H and P Allergies: Coded Allergies: No Known Allergies (06/24/17) Hospital Course/TX Response: June 27, 2017 (Dr. Benjie MD, covering for weekend): Impression and Plan: 26 yo with shizoaffective disorder and exacerbation of symptoms in the context of medication non-compliance Inpatient stabilization DSM 5 Diagnosis(es): schizoaffective disorder, bipolar type, acute exacerbation Treatment Plan: -resume medication -resume depo-medication -participation in therapeutic milieu June 28 and June 29, 2017: There were no changes made in the patient's medications. June 30, 2017: We will continue present medication regimen, observation, symptom monitoring. The patient will be followed up daily by psychiatrist. July 01 We will continue Risperidone 25 MG IM Q 2 WEEKS Risperidone 2 MG BID Divalproex Sodium 500 MG BID July 02 D/C Risperdal Consta (he insisted he was not on Consta and does not plan to continue on Consta) Continue Risperidone 2 MG BID Continue Divalproex Sodium 500 MG BID Lorazepam 2 MG AT BEDTIME NEEDed for insonia. July 03 Increase risperidone to 2 MG every morning and 3 mg at bedtime Continue Divalproex Sodium 500 MG BID Lorazepam 2 MG AT BEDTIME NEEDed for insonia. July 04 and July 05 (Dr. Shamika MD, covering for weekend) Increased bedtime dose of risperidone to 4mg for total of 6mg given increased agitation at nighttime. -Encourage integration into the milieu July 06 Continue risperidone 2 mg every morning and 4 mg at bedtime Continue Divalproex Sodium 500 MG BID Reduce PRN Lorazepam to 1.5 mg at BEDTIME NEEDed for insonia. July 07 Continue risperidone 2 mg every morning and 4 mg at bedtime Continue Divalproex Sodium 500 MG BID Reduce PRN Lorazepam to 1mg at BEDTIME NEEDed for insonia. 07/08/2017: I met with up with the patient this afternoon. He insisted that I called his brother from my office. He became very irate with his brother. We ended the phone conversation and then he became irate that he is not leaving today and was insisting that he wants to walk to buy some cigarettes and then walked to the train station and go to [place]. He was alert and oriented to place and person. Today he was not wearing earplugs. He denied hallucinations. He denied feeling depressed. He seemed to have difficulties with attention, concentration, and information processing. He denied feeling hopeless or wishing , he denied thoughts of suicide, he denied thoughts of violence or homicide. Treatment Plan Update: Continue risperidone 2 mg every morning and 4 mg at bedtime Continue Divalproex Sodium 500 MG BID Continue PRN Lorazepam to 1mg at BEDTIME NEEDed for insonia. 07/09/2017: Mental Status Examination: I met with the patient this morning. He was calm and did not want the family meeeting with his brother (see my note from yesterday). He feels ready for discharge and his plan was " I want to leave on foot, go to the gas station to buy cigarettes then walk to the train station and head to [place]." He was alert and oriented to place and person. He denied hallucinations. He denied feeling depressed. He seemed to have difficulties with attention, concentration , and information processing. He denied feeling hopeless or wishing , he denied thoughts of suicide, he denied thoughts of violence or homicide. Assessment: James is a 26-year-old single Black male who was admitted to the inpatient psychiatric unit on 06/27/2017 on a PEC due to what seemed to have been an acute exacerbation of schizophrenia. He showed slow but consistent improvement on the unit and was taking medications as prescribed. James has been compliant with the medication and has been tolerating gradual increases in his risperidone he is now on a total of 6 mg (2 mg in the morning and 4 mg at bedtime), he is not showing any dystonia or parkinsonian tremors Treatment Plan Update: Discharge to home in [place] and follow up with [facility] Discharge HBIPS - Tobacco Use Treatment Offered Post DC Medications Offered: Refused Tob Medication Tx Post DC Tobacco Treatment Plan: Refused Tobacco Tx Pgm - EtOH/Drug Use D/O Treatment Offered Post DC Medications Offered: NA-No EtOH/Drug Use D/O Post DC EtOH/SubAbuse TX Plan: NA-No EtOH/Drug Use D/O Metabolic Screening - Screen if on a Neuroleptic Medication - Metabolic screening should include: - Blood Pressure, BMI, Glucose or Hgb A1c, & a - Lipid profile from within the past 365 days. Metabolic Screening Patient on a neuroleptic(s) . Enter below results for Hemoglobin A1C, and lipid panel if obtained during the last 365 days. BMI: 23.100 Blood Pressure: 127/69 Laboratory Results From [facility] (If applicable): Pt. refused blood work twice Discharge Instructions General Discharge Information Multiple Neuroleptics: ([X]) Not Applicable Discharge Diet Regular Discharge Activity Normal DC Disposition: Home with follow up with [facility] Referrals Ordered Referrals Provider Referral 07/20/17 For Groups: [[facility]] Intake appt. @ [facility] 07/20/17 8:45am [address], [place] [phone] Prescriptions Stop taking the following medications: Antipyrine/Benzocaine (A/B Otic 54 MG/Ml-14 MG/Ml 15 Ml) 15 ML FELIX OTIC THREE TIMES DAILY Days = 10 Risperidone (Risperdal) 1 MG TABLET ORAL Every night Qty = 15 Start taking the following new medications: Divalproex Sodium (Divalproex Sodium) 500 MG TABLET.DR 500 Milligram ORAL TWICE DAILY Qty = 30 No Refills Comments: Last Taken:07/09/17 Time:0830 LORazepam (Ativan) 1 MG TAB 1 Milligram ORAL AT BEDTIME as needed for insomnia Qty = 14 No Refills Comments: Last Taken:07/08/17 Time:2200 Risperidone (Risperidone) 2 MG TABLET 1 Tablet ORAL SEE INSTRUCTIONS Qty = 45 No Refills Instructions: 1 tablet in the morning and 2 tablets at bedtime Comments: Last Taken:07/09/17 Time:0830 Other Inst/Recommendations please have blood tests done for Depakote and Risperidone Studies Pending at Discharge None Copies To: [facility]
== END 2017-07-09 10:30 | DRG 885 ==
LOC: ERH 15:00 → ERHI 06-27 08:39 → CP SOUTH 06-27 08:39
PROVIDERS: Physician Assistant Medical
DX: F20.0 Paranoid schizophrenia (principal)
CPT/HCPCS: 80307; 81003; G0463; G0480; J1630